=== PATIENT | female | born 1995 | race Two or more races ===

== ENCOUNTER 2016-08-01 20:55 | Emergency (ER) | payer OTHER ==
[2016-08-01 20:50] LABS: URINE SOURCE CLEAN CATCH
[~2016-08-01 20:55] MED LIST: KEFLEX500 M2 PO; KEFLEX500 MG PO; KETOPROFEN PO; NO MEDICATIONS; PHENERGAN PO; PRENATAL VITAMI1 TA4 PO; PRENATAL1 TA1 PO
[2016-08-01 20:56] LABS: URINE APPEARANCE CLOUDY; URINE BILIRUBIN NEG (NEG); URINE BLOOD NEG (NEG); URINE COLOR YELLOW; URINE GLUCOSE NEG (NEG); URINE KETONE TRACE (NEG); URINE LEUKOCYTE ESTERASE 1+ (NEG); URINE NITRATE NEG (NEG); URINE PH 5.5 (5-8); URINE PROTEIN NEG (NEG); URINE SPECIFIC GRAVITY 1.026 (1.003-1.035)
[2016-08-01 20:58] LABS: CULTURE INDICATED? YES; URINE BACTERIA AUWI 1+ (NEGATIVE); URINE SQUAMOUS EPITHELIAL CELL MANY /[HPF]
[2016-08-01 21:01] LABS: U HYALINE CASTS AUWI 0-2 /[LPF]
== END 2016-08-01 21:19 | disposition home or self-care (01) ==
LOC: CFTX 20:55
DX: N39.0 Urinary tract infection, site not specified (principal); A60.00 Herpesviral infection of urogenital system, unspecified
CPT/HCPCS: 81003; 84703; 87086; 99283